=== PATIENT | male | born 1960 | race Caucasian/White ===

== ENCOUNTER 2019-02-28 02:18 | Emergency (ER) | payer OTHER ==
[2019-02-28] MEDS ORDERED: ONDANSETRON INJ 4 MG/2 ML VIAL IV ONE (02:51)
[2019-02-28] MEDS ORDERED: SODIUM CHLORIDE 0.9% (FLUSH) 10 ML SYG IV PRN (02:51)
--- NOTE | 2019-02-28 03:32 | ED.PDOC ---
History of Present Illness - General Chief Complaint: Syncope/Near Syncope Stated Complaint:  Time Seen by Provider: 02/28/19 02:51 Source: patient, RN notes reviewed, Vital Signs reviewed, EMS notes reviewed Exam Limitations: no limitations - History of Present Illness Initial Comments: Patient presents via EMS with complaints of passing out repeatedly today. Patient recently out of the hospital for psychiatric stabilization on new medication regimen. On arrival home today he has been vomiting repeatedly. Any time the patient gets up he passes out. Patient feels better when he sits down. It gets worse when he stands up. Patient denies any diarrhea or fever. He denies any other symptoms. He denies chest pain, shortness of breath, headache, dizziness, blurry vision except when he nearly passes out. Timing/Prior Episodes: multiple episodes today Precipitating Factors: lightheadedness Context: standing Loss of Consciousness: dazed Current Symptoms: back to normal Allergies/Adverse Reactions: Allergies Penicillin G Allergy (Verified 02/28/19 04:42) Review of Systems - Review of Systems Constitutional: States: see HPI, malaise, weakness EENTM: States: no symptoms reported, see HPI Respiratory: States: no symptoms reported Cardiology: States: no symptoms reported Gastrointestinal/Abdominal: States: see HPI, nausea, vomiting Genitourinary: States: no symptoms reported Musculoskeletal: States: no symptoms reported Skin: States: no symptoms reported Neurological: States: weakness, other - near syncope Endocrine: States: no symptoms reported Hematologic/Lymphatic: States: no symptoms reported All other Systems: Reviewed and Negative Past Medical History (General) - Patient Medical History Hx Cancer: Yes Surgical History: other - Vaccination History Hx Tetanus, Diphtheria Vaccination: No Hx Influenza Vaccination: No Hx Pneumococcal Vaccination: No - Social History Hx Tobacco Use: Yes Hx Chewing Tobacco Use: No Hx Alcohol Use: Yes Hx Depression: Yes Feels Threatened In Home Enviroment: No Feels Threatened In a Relationship: No Hx Physical Abuse: No Hx Emotional Abuse: No Hx Suspected Abuse: No - Triage Comment ED Triage Comment: The patient compalined of feeling bad for the past 2 days and had had N/V. Physical Exam - Physical Exam General Appearance: Alert, Comfortable, Well Developed, Well Groomed, Well Nourished Eyes, Ears, Nose, Throat Exam: PERRL/EOMI, normal ENT inspection, other - normal ENT except for dry mucous membranes Neck: non-tender, full range of motion, supple, normal inspection Cardiovascular/Respiratory: no M/R/G, normal peripheral pulses, normal breath sounds, no respiratory distress, tachycardia Gastrointestinal/Abdominal: normal bowel sounds, non tender, soft Back Exam: normal inspection, no CVA tenderness, no vertebral tenderness Extremity: normal range of motion, non-tender, normal inspection, no pedal edema 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 02/28/19 05:19 Age resting comfortably, his heart rate has come down after 1 L fluid. She denies any chest pain any nausea, vomiting or diarrhea at this time. Patient denies any abdominal pain. Patient has a white count of 43,000 with a slightly elevated troponin of 0.18. Of sepsis. Chest x-ray is negative for infection. Urinalysis is pending. As his lactic acid and the chem 7. [place]. I discussed splint care with the patient he voices understanding and agreement. Sylvester Suggs M.D. - Results/Orders Results/Orders: 02/28/19 02:12 B-TYPE NATRIURETIC PEPTIDE/BNP Stat CARDIAC PANEL,ER Stat DIFFERENTIAL,MANUAL BY FLAGS Stat 02/28/19 02:51 Sodium Chloride 0.9% (Flush) [Saline Flush Syringe] 10 ml IV PRN PRN 02/28/19 02:52 IV Care:Saline Lock per Protoc QSHIFT Telemetry .ONCE EKG Stat Pulse Ox Stat Pulse Oximetry Assessment DAILY 02/28/19 04:55 URINE DRUG SCREEN, 7 ASSAY Stat 02/28/19 04:56 URINALYSIS Stat 02/28/19 05:08 LACTIC ACID Stat BLOOD CULTURE Stat Laboratory Results - last 24 hr 02/28/19 02/28/19 02:12 02:12 WBC 43.4 H* RBC 4.01 L Hgb 12.6 L Hct 39.1 L MCV 97.5 H MCH 31.4 H MCHC 32.2 L RDW 13.2 Plt Count 360 MPV 10.8 H Absolute Neuts (auto) 38.40 H Absolute Lymphs (auto) 2.40 Absolute Monos (auto) 2.50 H Absolute Eos (auto) 0.00 Absolute Basos (auto) 0.10 Neutrophils % 88.7 H Lymphocytes % 5.5 L Monocytes % 5.7 Eosinophils % 0.0 L Basophils % 0.1 PT 9.5 INR 0.95 PTT (SP) 21.0 L Sodium 139 Potassium 3.1 L Chloride 99 L Carbon Dioxide 21 Anion Gap 22.1 H BUN 122 H* Creatinine 2.39 H BUN/Creatinine Ratio 51.0 H Random Glucose 212 H Calcium 9.1 Magnesium 2.6 H Total Bilirubin 0.6 Direct Bilirubin 0.2 Indirect Bilirubin 0.4 AST 28 ALT 18 Alkaline Phosphatase 49 Creatine Kinase 278 H* CK-MB (CK-2) 10.8 H* CK-MB (CK-2) % 3.88 H Troponin I 0.18 H* B-Natriuretic Peptide 36.6 Serum Total Protein 7.1 Albumin 4.1 chest x-ray is negative for any source of infection. There is no consolidations or fluid overload. EKG performed at 28 February 2019 at 0310 hrs.: Sinus tachycardia at 107 bpm, nonspecific T-wave changes, abnormal EKG. No EKG for comparison. Departure - Departure Clinical Impression: Lactic acidosis Renal failure Qualifiers: Renal failure chronicity: acute Leukocytosis Qualifiers: Leukocytosis type: unspecified Qualified Code(s): D72.829 - Elevated white blood cell count, unspecified Time of Disposition: 05:24 Disposition: Transfer to Hospital Condition: Serious Referrals: Gabriel Davis MD [Primary Care Provider] - 1-2 Weeks Transfer to Outside Facility - Transfer Information Decision to Transfer Date: 02/28/19 Decision to Transfer Time: 04:30 Reason for Transfer: required specialist not available Accepting Provider:: Dr. Vilchis Accepting Facility: [facility] - ER to ER transfer
[2019-02-28] MEDS ORDERED: SODIUM CHLORIDE 0.9% 1000ML 1,000 ML ONE (04:16)
[2019-02-28] MEDS ORDERED: NITROGLYCERIN 2% 1 GM UD TOP ONE (04:24)
[2019-02-28] MEDS ORDERED: ASPIRIN (CHEWABLE) 81 MG TAB PO ONE (04:24)
[2019-02-28] MEDS ORDERED: ENOXAPARIN SODIUM 100 MG/ML SYG SUBCU ONE (04:31)
--- NOTE | 2019-02-28 04:39 | RAD ---
CHEST, ONE VIEW XR CLINICAL HISTORY: Syncope. COMPARISON: 03/08/2011 TECHNIQUE: AP Chest. FINDINGS: [Normal cardiac size. Pulmonary vasculature appears normal. Normal cardiomediastinal contours. Lungs are clear. Pleural spaces are clear. Unremarkable soft tissues and bones.] IMPRESSION: 1. Negative chest. Electronically signed by: Mary Fields DO 02/28/2019 4:36 AM GRINDER OPERATOR
[2019-02-28 05:42] VITALS: BP 146/85; TEMP 97.7; O2SAT 99
== END 2019-02-28 05:42 | disposition short-term general hospital (02) ==
LOC: ER 02:18
DX: N17.9 Acute kidney failure, unspecified (principal); E87.2 Acidosis; D72.829 Elevated white blood cell count, unspecified; R55 Syncope and collapse; R11.2 Nausea with vomiting, unspecified; R00.0 Tachycardia, unspecified; F32.9 Major depressive disorder, single episode, unspecified; Z85.9 Personal history of malignant neoplasm, unspecified; Z87.891 Personal history of nicotine dependence; Z88.0 Allergy status to penicillin
CPT/HCPCS: 71045; 80048; 80076; 82550; 82553; 83605; 83880; 84484; 85025; 85610; 85730; 87040; 93005; J1650; J2405; J7030

== ENCOUNTER 2020-01-02 19:17 | Emergency (ER) | payer OTHER ==
[2020-01-02 19:30] VITALS: TEMP 97.7
[2020-01-02] MEDS ORDERED: MORPHINE SULFATE INJ 10 MG/ML VIAL IV ONE (19:31)
[2020-01-02] MEDS ORDERED: SODIUM CHLORIDE 0.9% 1000ML 1,000 ML IVS ONE (19:31)
[2020-01-02] MEDS ORDERED: ONDANSETRON INJ 4 MG/2 ML VIAL IV ONE (19:31)
[2020-01-02] MEDS ORDERED: FAMOTIDINE IV PREMIX 20 MG in PREMIX BAG 1 BAG IVPB ONE (19:31)
[2020-01-02] MEDS ORDERED: ALUM & MAG HYDROX-SIMETHICONE 30 ML, LIDOCAINE VISCOUS 2% 15 ML PO ONE ×2 (19:35)
[2020-01-02] MEDS ORDERED: ALUM & MAG HYDROX-SIMETHICONE 30 ML UD ONE (19:37)
[2020-01-02] MEDS ORDERED: LIDOCAINE HCL 2% (MOUTH-THROAT) 15 ML UD ONE (19:37)
--- NOTE | 2020-01-02 19:37 | ED.PDOC ---
History of Present Illness - General Chief Complaint: Abdominal Pain Stated Complaint: epigastric pain, Hx ulcers Time Seen by Provider: 01/02/20 19:26 Information Source: patient Exam Limitations: no limitations - History of Present Illness Initial Comments: Pt is a 59 yo male with PMH of PUD who presents with 24 hour h/o burning epigastric pain that is typical of his gastric ulcers. States he has been nauseated today and vomited x 2. Denies CP, SOB, hematemesis, fever or diarrhea. Has taken Pepto bismol at home without relief. States he had an endoscopy 1 year ago that showed gastric ulcers. States he has not been taking his PPI daily for the past several weeks. Review of Systems - Review of Systems Constitutional: Denies: chills, fever, weakness EENTM: Denies: throat pain Respiratory: Denies: cough, short of breath Cardiology: Denies: chest pain, edema, palpitations, syncope Gastrointestinal/Abdominal: States: abdominal pain, nausea, vomiting. Denies: diarrhea Musculoskeletal: Denies: back pain, neck pain Neurological: Denies: headache All other Systems: Reviewed and Negative Past Medical History (General) - Patient Medical History Hx Seizures: No Hx Stroke: No Hx Dementia: No Hx Asthma: No Hx of COPD: No Hx Cardiac Disorders: No Hx Congestive Heart Failure: No Hx Pacemaker: No Hx Hypertension: Yes Hx Thyroid Disease: No Hx Diabetes: No Hx Gastroesophageal Reflux: Yes Hx Renal Disease: No Hx Cancer: Yes Hx of HIV: No Hx Hepatitis C: No Hx MRSA: No Surgical History: cancer surgery - Vaccination History Hx Tetanus, Diphtheria Vaccination: No Hx Influenza Vaccination: Yes Hx Pneumococcal Vaccination: Yes - Social History Hx Tobacco Use: Yes Hx Chewing Tobacco Use: No Hx Alcohol Use: Yes - occasional Hx Depression: Yes Hx Physical Abuse: No Hx Emotional Abuse: No Hx Suspected Abuse: No Family Medical History - Family History Mother Family History: Unknown Physical Exam - Physical Exam General Appearance: Alert, Comfortable, No apparent distress Neck: non-tender, supple Respiratory: chest non-tender, lungs clear, normal breath sounds, no respiratory distress Cardiovascular/Chest: regular rate, rhythm, no murmur Gastrointestinal/Abdominal: other - obese, soft. TTP bilateral upper abdomen. No guarding or rigidity Back Exam: no CVA tenderness, no vertebral tenderness Extremity: normal range of motion, non-tender Neurologic: alert, normal mood/affect Skin Exam: normal color Progress - Progress Progress: 01/02/20 23:21 Pt reports h/o PUD. Does not take PPI daily. Presents with burning upper abd pain and vomiting. Has leukocytosis, CT ordered to evaluate for obstruction vs infection and is unremarkable. Pain resolved with GI cocktail and pt tolerating po fluids well. He will take PPI daily and f/u with GI for continued evaluation. SRP given. - Results/Orders Results/Orders: EKG- sinus tachycardia, rate 113, nml intervals, nonspecific ST abnormality CT ABDOMEN/PELVIS ABDOMEN: LIVER: Unremarkable. No mass. GALLBLADDER AND BILE DUCTS: Unremarkable. No calcified stones. No ductal dilation. PANCREAS: Unremarkable. No mass. No ductal dilation. SPLEEN: Unremarkable. No splenomegaly. ADRENALS: Unremarkable. No mass. KIDNEYS AND URETERS: Unremarkable. No solid mass. No hydronephrosis. STOMACH AND BOWEL: Enteric contrast in the stomach and scattered throughout the small and proximal large bowel. No mucosal thickening or obstruction. PELVIS: APPENDIX: The appendix is seen and is within normal limits. BLADDER: Unremarkable. No mass. REPRODUCTIVE: Prior prostatectomy. ABDOMEN and PELVIS: INTRAPERITONEAL SPACE: Unremarkable. No free air. No significant fluid collection. BONES/JOINTS: Lower lumbar postsurgical changes. Retrolisthesis of L3 on L4. No acute fracture. No dislocation. SOFT TISSUES: Small fat-containing right inguinal and umbilical hernias. VASCULATURE: Unremarkable. No abdominal aortic aneurysm. LYMPH NODES: Unremarkable. No enlarged lymph nodes. IMPRESSION: 1. No acute abdominal or pelvic abnormality. 2. Small hiatal hernia. 01/02/20 19:30 IV:Start .ONCE EKG .ONCE 01/02/20 19:31 Hold Metformin x 48Hrs [id number] 01/02/20 20:20 URINALYSIS Stat Laboratory Results - last 24 hr 01/02/20 01/02/20 19:50 19:50 WBC 15.2 H RBC 4.91 Hgb 15.6 Hct 44.8 MCV 91.4 MCH 31.8 H MCHC 34.8 RDW 13.2 Plt Count 357 MPV 8.9 Absolute Neuts (auto) 13.70 H Absolute Lymphs (auto) 0.90 L Absolute Monos (auto) 0.50 Absolute Eos (auto) 0.00 Absolute Basos (auto) 0.00 Neutrophils % 90.0 H Lymphocytes % 6.1 L Monocytes % 3.3 Eosinophils % 0.3 L Basophils % 0.3 Sodium 141 Potassium 3.5 L Chloride 101 Carbon Dioxide 26 Anion Gap 17.5 BUN 16 Creatinine 0.90 BUN/Creatinine Ratio 17.8 Random Glucose 134 H Serum Osmolality 284.4 Calcium 10.6 H Total Bilirubin 0.7 AST 22 ALT 27 Alkaline Phosphatase 99 Serum Total Protein 8.5 H Albumin 4.9 Globulin 3.6 H Albumin/Globulin Ratio 1.4 Lipase 28 Departure - Departure Clinical Impression: Upper abdominal pain, Peptic ulcer disease Leukocytosis Qualifiers: Leukocytosis type: unspecified Qualified Code(s): D72.829 - Elevated white blood cell count, unspecified Time of Disposition: 21:30 Disposition: Discharge to Home or Self Care Condition: Good Departure Forms: ED Discharge - Pt. Copy, Patient Portal Self Enrollment Instructions: DI for Abdominal Pain-Adult, Peptic Ulcers (DC) Diet: bland diet Activity: increase activity as tolerated Referrals: Gabriel Davis MD [Primary Care Provider] - 1-2 Days Prescriptions: Ondansetron HCl [Zofran] 4 mg PO Q6HR PRN #15 tab PRN Reason: Nausea Omeprazole Magnesium [Prilosec Otc] 20 mg PO DAILY #30 tab Acetaminophen W/ Codeine [Tylenol W/ CODEINE #3] 1 tablet PO Q6H PRN #20 PRN Reason: Pain Home Medications: Ambulatory Orders ARIPiprazole [Abilify] 5 mg PO DAILY 01/02/20 Acetaminophen W/ Codeine [Tylenol W/ CODEINE #3] 1 tablet PO Q6H PRN #20 01/02/20 Amitriptyline HCl [Amitriptyline Hydrochlori] 50 mg PO BEDTIME 01/02/20 Amlodipine Besylate 10 mg PO DAILY 01/02/20 Atorvastatin Calcium [Lipitor] 20 mg PO BEDTIME 01/02/20 Omeprazole Magnesium [Prilosec Otc] 20 mg PO DAILY #30 tab 01/02/20 Ondansetron HCl [Zofran] 4 mg PO Q6HR PRN #15 tab 01/02/20 Sildenafil Citrate [Sildenafil] 100 mg PO PRN 01/02/20 Venlafaxine HCl [Venlafaxine HCl ER] 75 mg PO DAILY 01/02/20
--- NOTE | 2020-01-02 21:22 | CT ---
PROCEDURE: CT Abdomen and Pelvis With Intravenous Contrast CLINICAL INDICATION: The patient is 59 years old and is Male; upper abd pain, vomiting TECHNIQUE: Axial computed tomography images of the abdomen and pelvis with intravenous contrast. Sagittal and coronal reformatted images were created and reviewed. This CT exam was performed using one or more of the following dose reduction techniques: automated exposure control, adjustment of the mA and/or kV according to patient size, and/or use of iterative reconstruction technique. DLP: 1345 mGy*cm COMPARISON: None. FINDINGS: LUNG BASES: Lung bases are clear. HEART: Visualized heart is normal. MEDIASTINUM: Small hiatal hernia. ABDOMEN: LIVER: Unremarkable. No mass. GALLBLADDER AND BILE DUCTS: Unremarkable. No calcified stones. No ductal dilation. PANCREAS: Unremarkable. No mass. No ductal dilation. SPLEEN: Unremarkable. No splenomegaly. ADRENALS: Unremarkable. No mass. KIDNEYS AND URETERS: Unremarkable. No solid mass. No hydronephrosis. STOMACH AND BOWEL: Enteric contrast in the stomach and scattered throughout the small and proximal large bowel. No mucosal thickening or obstruction. PELVIS: APPENDIX: The appendix is seen and is within normal limits. BLADDER: Unremarkable. No mass. REPRODUCTIVE: Prior prostatectomy. ABDOMEN and PELVIS: INTRAPERITONEAL SPACE: Unremarkable. No free air. No significant fluid collection. BONES/JOINTS: Lower lumbar postsurgical changes. Retrolisthesis of L3 on L4. No acute fracture. No dislocation. SOFT TISSUES: Small fat-containing right inguinal and umbilical hernias. VASCULATURE: Unremarkable. No abdominal aortic aneurysm. LYMPH NODES: Unremarkable. No enlarged lymph nodes. IMPRESSION: 1. No acute abdominal or pelvic abnormality. 2. Small hiatal hernia. Electronically signed by: Rivera Cedeño DO 01/02/2020 9:20 PM CDT
[2020-01-02 21:48] VITALS: BP 148/92; O2SAT 97
== END 2020-01-02 21:45 | disposition home or self-care (01) ==
LOC: ER 19:17
DX: K27.9 Peptic ulcer, site unspecified, unspecified as acute or chronic, without hemorrhage or perforation (principal); D72.829 Elevated white blood cell count, unspecified; R11.2 Nausea with vomiting, unspecified; K44.9 Diaphragmatic hernia without obstruction or gangrene; R00.0 Tachycardia, unspecified; K42.9 Umbilical hernia without obstruction or gangrene; K40.90 Unilateral inguinal hernia, without obstruction or gangrene, not specified as recurrent; F32.9 Major depressive disorder, single episode, unspecified; K21.9 Gastro-esophageal reflux disease without esophagitis; I10 Essential (primary) hypertension; Z85.9 Personal history of malignant neoplasm, unspecified; Z79.899 Other long term (current) drug therapy
CPT/HCPCS: 74177; 80053; 83690; 85025; 93005; J2270; J2405; J3490; J7030